=== PATIENT | male | born 1995 | race Two or more races ===

== ENCOUNTER 2022-02-12 02:26 | Emergency (ER) | payer MEDICAID ==
[~2022-02-12] VITALS: Ht 175.3 cm; Wt 81.6 kg
--- NOTE | 2022-02-12 02:46 | NUR ---
TO ER BED 3. BIBSELF C/O TENDERNESS AND PAINFUL LUMP ON ABDOMEN AFTER FALL X 1 WEEK. CHANGED INTO GOWN. AWAITING MD FLORES
--- NOTE | 2022-02-12 02:54 | NUR ---
LAB AT BEDSIDE
[2022-02-12] MEDS ORDERED: IBUPROFEN 400 MG TABLET ONE (02:55)
[2022-02-12] MEDS ORDERED: IBUPROFEN 400 MG TABLET PO ONE (03:00)
[2022-02-12] MEDS ORDERED: ACETAMINOPHEN ES 500 MG TABLET ONE (03:07)
[2022-02-12 03:23] LABS: BASOPHILS % (AUTO) 0.7 % (0.0-2.0); EOSINOPHILS % (AUTO) 2.8 % (0.0-6.0); HEMATOCRIT 43 % (39-51); HEMOGLOBIN 13.9 g/dL (13.5-17.5); LYMPHOCYTES # (AUTO) 1.8 K/uL (0.8-4.8); LYMPHOCYTES % (AUTO) 24.6 % (20.0-44.0); MEAN CORPUSCULAR HGB CONC 33 g/dl (31.0-36.0); MEAN CORPUSCULAR VOLUME 88 fL (80-96); MONOCYTES # (AUTO) 0.9 K/uL (0.1-1.30); MONOCYTES % (AUTO) 11.9 % (2.0-12.0); NEUTROPHILS # (AUTO) 4.5 K/uL (1.8-8.9); PLATELET COUNT (AUTO) 159 K/uL (150-450); RED BLOOD CELL COUNT(AUTO) 4.81 MIL/uL (4.5-6.0); WHITE BLOOD COUNT (AUTO) 7.5 K/uL (4.3-11.0)
[2022-02-12] MEDS ORDERED: ACETAMINOPHEN 325 MG TABLET PO ONE (03:30)
[2022-02-12 03:45] LABS: ALBUMIN 3.6 g/dL (3.4-5.0); BILIRUBIN,DIRECT 0.1 mg/dL (0.0-0.2); BILIRUBIN,TOTAL 0.2 mg/dL (0.2-1.0); CALCIUM, SERUM 8.6 mg/dL (8.5-10.1); CREATININE 1.1 mg/dL (0.6-1.3); TOTAL PROTEIN, SERUM 6.8 g/dL (6.4-8.2)
[2022-02-12 05:10] VITALS: BP 149/70
--- NOTE | 2022-02-12 05:10 | NUR ---
Patient discharged to home in stable condition. Written and verbal after care instructions given. Patient verbalizes understanding of instruction.
== END 2022-02-12 05:11 | disposition home or self-care (01) ==
LOC: ER 02:35
DX: R10.84 Generalized abdominal pain (principal); Z88.6 Allergy status to analgesic agent; Z60.2 Problems related to living alone
CPT/HCPCS: 36415; 76700-TC; 80048-TC; 80076-TC; 83690-TC; 85025-TC